=== PATIENT | female | born 1985 | race Caucasian/White ===

== ENCOUNTER 2025-06-12 14:55 | Inpatient (IN) ==
[2025-06-12] MEDS: ZOFRAN SDV IVP ONE (15:51)
[2025-06-12] MEDS: TORADOL IVP ONE (15:51)
[2025-06-12] MEDS: MORPHINE 4 MG/ML SYRINGE IVP ONE (15:51)
[2025-06-12 15:53] LABS: IMMATURE GRANULOCYTE # (AUTO) 0.1 (0.0-1.0); IMMATURE GRANULOCYTE % (AUTO) 0.6 % (0.0-5.0); RDW COEFFICIENT OF VARIATION 14.3 % (11.6-14.8)
[2025-06-12] MEDS: SODIUM CHLORIDE 1,000 ML IV ONE ×3 (15:59→21:04)
[2025-06-12 16:06] LABS: CREATININE 0.53 mg/dL (0.60-1.30)
[2025-06-12] MEDS: DILAUDID 1 MG/ML SYRINGE IVP ONE (16:43)
--- NOTE | 2025-06-12 17:12 | CT ---
EXAM: CT ABDOMEN AND PELVIS HISTORY: Right lower quadrant pain TECHNIQUE: CT abdomen and pelvis without intravenous contrast. Images were reconstructed using 3 mm section thickness. Reformations were prepared. COMPARISON: None FINDINGS: Diagnostic limitations exist without including intravenous contrast enhanced images. Elongated right hepatic lobe. Gallbladder is normal. No biliary dilatation or pancreatic pathology. Spleen and adrenal glands are normal. Left kidney and ureter are normal. There is mild right perinephric fat stranding and minimal hydronephrosis. The right ureter is mildly dilated and there is subtle right periureteral inflammatory stranding and urothelial thickening. No renal or ureteral calculus is identified. Urinary bladder is normal with no luminal calculus or wall thickening. Normal abdominal aorta. Normal stomach and appendix. General bowel gas pattern and appearance are within normal limits. No uterus is seen. There is no ascites or free air. No abdominal wall hernia. The bones are unremarkable. Lung bases are clear. - - - - - IMPRESSION: 1. There is mild right perinephric fat stranding and minimal hydronephrosis. The right ureter is mildly dilated and there is subtle right periureteral inflammatory stranding and urothelial thickening. No renal or ureteral calculus is identified. Urinary bladder is normal with no luminal calculus or wall thickening. Differential considerations include recent passage of a calculus and right renal collecting system infection/pyelonephritis. Correlate clinically. Left kidney is normal. 2. Normal appendix. Normal bowel gas pattern. No ascites or free air. - - - - - All CT scans are performed using dose optimization techniques as appropriate to the performed exam and include at least one of the following: Automated exposure control, adjustment of the mA and/or kV according to size, and the use of iterative reconstruction technique.
[2025-06-12] MEDS: BENADRYL PO STA (17:55)
[2025-06-12] MEDS: ROCEPHIN 1 GM VIAL IVP ONE (17:57)
[2025-06-12] MEDS ORDERED: BENADRYL IVP STA (18:03)
[2025-06-12] MEDS ORDERED: BENADRYL PO STA (18:13)
[2025-06-12] MEDS ORDERED: ZOFRAN SDV IVP PRN (18:15)
[2025-06-12] MEDS: ROCEPHIN 1 GM VIAL ONE (18:15)
--- NOTE | 2025-06-12 18:44 | ED.PDOC ---
General HPI ED Provider: Dr. ANNE MEJIA MD Chief Complaint: Back Pain Stated Complaint: Patient is a 40-year-old female is presenting for evaluation of acute abdominal pain. Patient stated that starting yesterday evening she has had a right sided flank pain that is sharp and severe. She is not taking medication for treatment of the pain. She states that is worsened significantly when she moves. She has had several episodes of emesis and has not been able to keep any fluids or food down. She denies any fever though. States that she has had kidney stones in the past and that this does feel similar to it. She denies any dysuria, hematuria, increased urinary frequency, vaginal discharge, or vaginal bleeding. Notes that she had a normal bowel movement earlier today. Denies any lower extremity weakness or paresthesias. Time Seen by Provider: 06/12/25 15:28 Mode of Arrival: Walk-In Information Source: Patient Exam Limitations: No limitations Nursing and Triage Documentation Reviewed and Agree: Yes Opioid Naive vs. Tolerant Does Patient Take Opioids?: No Is Patient Opioid Naive?: Yes What is Opioid Naive?: *Opioid Naive implies the patient is not already taking opioids or not chronically receiving opioids on a daily basis. *PRN dosing is not "usually" associated with tolerance. *Patients are at higher risk of over-sedation and aspiration. What is Opioid Tolerant?: *Opioid Tolerance implies less than the expected response to an opioid. *Acquired tolerance is defined by the patient taking 60mg of oral morphine daily (or equianalgesic dose of another opioid) for 1 week or more. *Often associated with chronic pain. *May take more than usual dose to achieve desired pain control. Review of Systems Review Of Systems Constitutional: Reports Chills; Denies Loss of appetite Respiratory: Reports No symptoms Cardiac: Reports No symptoms GI: Reports Abdominal pain, Nausea and Vomiting; Denies Constipated or Diarrhea : Reports Flank pain; Denies Burning, Dysuria, Frequency, Hematuria or Urgency Musculoskeletal: Reports Back pain Skin: Denies Rash Neurological: Reports No symptoms PFSH Female Reproductive History Menstrual Hx Hysterectomy: Yes Hx Tubal Ligation: Yes Physical Exam Physical Exam Appearance: Reports Ill-appearing (Patient is lying on her side in a position secondary to pain.) Ill-appearing: Mild Pain Distress: Severe Eyes: Reports Conjunctiva clear Neck: Supple Respiratory: Reports Airway patent and Breath sounds clear Cardiovascular: Reports RRR and Pulses normal GI/: Reports Soft and Tender (Right upper and right lower quadrant abdominal tenderness to palpation but there is no guarding or rigidity present. Remainder of abdomen is nontender.) Musculoskeletal: Reports Other (Negative for CVA tenderness bilaterally.) Skin: Reports Warm, Dry and Normal color; Denies Pale or Diaphoretic Neurological: Reports Sensation intact and Motor intact Interpretation Radiology Interpretation Radiology Interpretation By: Radiologist Radiology Results: Positive Exam Interpreted: Other (CT abdomen/pelvis without contrast) Xray Comments: Right pyelonephritis Re-Evaluation Re-Evaluation Time of Re-Evaluation: 17:30 Status: Unchanged Vital Signs Stable: Yes Physician Progress Note Physician Progress Note: Patient is a 40-year-old female that is presenting to the Emergency Department for evaluation of acute right sided lumbar back pain as well as right lower quadrant abdominal pain. Differential diagnosis at this time is nephrolithiasis versus pyelonephritis versus appendicitis Patient's initial presentation was highly suggestive of renal colic as she described the pain as colicky in nature and consistent with her prior nephrolithiasis. Although she denied any CVA tenderness pyelonephritis was certainly also on the differential. Her pain later began to radiate to her right lower quadrant and appendicitis became a concern at that point. We therefore obtained a CT abdomen/pelvis without contrast given the patient's severe contrast allergy. This was interpreted by the radiologist as showing findings consistent with acute right-sided pyelonephritis and mild hydronephrosis consistent with a renal stone that is likely passed. CBC did show a leukocytosis of 17,000 with a left shift and neutrophil predominance. I therefore added a CRP with results of the study still pending at this time. This raise my concern that the patient likely has an underlying infection and we therefore obtained blood cultures x [address] imaging showed signs that she has pyelonephritis. Lactic acid was also elevated at 3 and we will obtain a repeat after the patient receives her 30 cc/kg fluid bolus followed by a maintenance saline infusion. Once CT abdomen/pelvis showed signs of pyelonephritis, we initiated IV ceftriaxone 2 g. I favor the patient requires inpatient admission for IV antibiotics given that she is having emesis at home and will be unable to tolerate outpatient p.o. antibiotic regimen. For analgesia we began with 4 mg of morphine as well as Toradol 30 mg IV, however, this fails provide adequate analgesia and we therefore escalated to Dilaudid 1 g IV. Patient also had significant nausea and was given Zofran 4 mg IV which did provide improvement. Nausea later recurred and we gave Benadryl 25 mg p.o. Should be noted that ectopic was on the differential though of much lower clinical likelihood given her hysterectomy. We did order a urine as well as a urinalysis to screen for evidence of a UTI, however, patient declined providing a urine sample done here in the emergency department prior to admission. I discussed with the patient the findings of her CT imaging as well as laboratory work and recommended inpatient admission for IV antibiotics. Patient was amenable to this plan. Diagnosis: Acute right-sided pyelonephritis Course Course 06/12/25 15:48 06/12/25 15:48 Orders, Labs, Meds: Lab Review 06/12/25 06/12/25 15:48 17:16 WBC 17.34 H RBC 4.12 L Hgb 12.5 Hct 37.1 MCV 90.0 MCH 30.3 MCHC 33.7 RDW Coeff of Danny 14.3 Plt Count 368 Immature Gran % (Auto) 0.6 Neut % (Auto) 86.9 H Lymph % (Auto) 4.3 L [place] % (Auto) 7.9 Eos % (Auto) 0.1 Baso % (Auto) 0.2 Neut # (Auto) 15.1 H Lymph # (Auto) 0.7 [place] # (Auto) 1.4 Eos # (Auto) 0.0 Baso # (Auto) 0.0 Immature Gran # (Auto) 0.1 Sodium 130.1 L Potassium 5.18 H Chloride 99.6 Carbon Dioxide 22.4 Anion Gap 13.28 BUN 3.9 L Creatinine 0.53 L Estimated GFR (MDRD) 128.00 BUN/Creatinine Ratio 7.35 Glucose 169.9 H Lactic Acid 3.07 H Calcium 8.06 L Magnesium 2.28 Total Bilirubin 1.40 H AST 64.0 H ALT 30.3 Alkaline Phosphatase 112.8 Total Protein 7.82 Albumin 3.96 Globulin 3.86 Albumin/Globulin Ratio 1.02 Lipase 30.1 Orders Category Date Time Status PLACE PATIENT OBSERVATION .TO [facility] (MONITORED BED ADMISSION 06/12/25 18:14 Active ) ACTIVITY .Early Mobilization for VTE Prevention CARE 06/12/25 18:15 Active INTAKE & OUTPUT Q8HR CARE 06/12/25 18:14 Active IP: INSERT SALINE LOCK ONCE CARE 06/12/25 18:04 Active TELEMETRY MONITORING TELE CARE 06/12/25 18:14 Active VITAL SIGNS Q4H CARE 06/12/25 18:04 Active REGULAR DIET DIETARY 06/13/25 Breakfast Ordered BLOOD CULTURE (ED ONLY) Stat LAB 06/12/25 17:41 Received CBC W/ AUTO DIFF DAILY@0600 LAB 06/13/25 06:00 Ordered CBC W/ AUTO DIFF DAILY@0600 LAB 06/14/25 06:00 Ordered CBC W/ AUTO DIFF Stat LAB 06/12/25 15:48 Completed CMP [COMPREHENSIVE METABOLIC PANEL] Stat LAB 06/12/25 15:48 Completed COMPREHENSIVE METABOLIC PANEL DAILY@0600 LAB 06/13/25 06:00 Ordered COMPREHENSIVE METABOLIC PANEL DAILY@0600 LAB 06/14/25 06:00 Ordered CRP [C-REACTIVE PROTEIN] Stat LAB 06/12/25 17:16 Received LACTIC ACID Stat LAB 06/12/25 17:16 Completed LACTIC ACID Stat LAB 06/12/25 18:03 Stop Req LACTIC ACID Stat LAB 06/12/25 19:00 Ordered LIPASE Stat LAB 06/12/25 15:48 Completed MAGNESIUM Stat LAB 06/12/25 17:16 Completed TEST URINE [URINE ] Stat LAB 06/12/25 15:24 Uncollected URINALYSIS C & S IF INDICATED Stat LAB 06/12/25 15:24 Uncollected Ceftriaxone 1 gm Vial [Rocephin 1 gm Vial] Meds 06/12/25 17:56 Discontinued 1 gm .ROUTE .STK-MED ONE Ceftriaxone 1 gm Vial [Rocephin 1 gm Vial] Meds 06/12/25 17:43 Discontinued 2 gm IVP ONCE ONE Ceftriaxone/D5w 1 gm Premix [Rocephin 1 gm/50 ml D5w] Meds 06/13/25 09:00 Active 1 gm in 50 ml IV DAILY Diphenhydramine HCl [Benadryl] Meds 06/12/25 17:51 Discontinued 25 mg PO ONCE STA Hydromorphone HCl [Dilaudid 1 mg/ml Syringe] Meds 06/12/25 16:37 Discontinued 1 mg IVP ONCE ONE Ketorolac Tromethamine [Toradol] Meds 06/12/25 18:15 Active 15 mg IVP Q6HR PRN Ketorolac Tromethamine [Toradol] Meds 06/12/25 15:24 Discontinued 30 mg IVP ONCE ONE Morphine Sulfate [Morphine 2 mg/ml Syringe] Meds 06/12/25 18:15 Active 2 mg IVP Q6H PRN Morphine Sulfate [Morphine 4 mg/ml Syringe] Meds 06/12/25 15:24 Discontinued 4 mg IVP ONCE ONE Ondansetron HCl/Pf [Zofran Sdv] Meds 06/12/25 15:24 Discontinued 4 mg IVP ONCE ONE Ondansetron HCl/Pf [Zofran Sdv] Meds 06/12/25 18:15 Active 4 mg IVP Q6H PRN Sodium Chloride 0.9% [Sodium Chloride] 1,000 ml Meds 06/12/25 17:43 Active IV 125 mls/hr Sodium Chloride 0.9% [Sodium Chloride] 1,000 ml Meds 06/12/25 18:30 Active IV 125 mls/hr Sodium Chloride 0.9% [Sodium Chloride] 1,000 ml Meds 06/12/25 15:24 Discontinued IV BOLUS Sodium Chloride 0.9% [Sodium Chloride] 1,000 ml Meds 06/12/25 18:03 Active IV BOLUS RESUSCITATION STATUS Routine OTHERS 06/12/25 18:[address] ABDOMEN/PELVIS WO CONTRAST Stat RADS 06/12/25 16:39 Completed Medications Generic Name Dose Route Start Last Admin Trade Name Freq PRN Reason Stop Dose Admin Sodium Chloride 1,000 mls @ 125 mls/hr 06/12/25 17:43 06/12/25 17:54 Sodium Chloride IV 06/13/25 01:42 125 mls/hr .Q8H ONE Administration Sodium Chloride 1,000 mls @ 1,000 mls/hr 06/12/25 18:03 Sodium Chloride IV 06/12/25 19:02 BOLUS ONE CEFTRIAXONE/D5W 1 GM PREMIX 1 gm in 50 mls @ 100 mls/hr 06/13/25 09:00 Rocephin 1 Gm/50 Ml D5w IV 06/16/25 08:59 DAILY ROVERTO Sodium Chloride 1,000 mls @ 125 mls/hr 06/12/25 18:30 Sodium Chloride IV .Q8H ROVERTO Ketorolac Tromethamine 15 mg 06/12/25 18:15 Ketorolac Tromethamine 15 Mg/Ml Vial IVP 06/16/25 18:16 Q6HR PRN Pain Morphine Sulfate 2 mg 06/12/25 18:15 Morphine Sulfate 2 Mg/Ml Syringe IVP Q6H PRN MODERATE PAIN Ondansetron HCl 4 mg 06/12/25 18:15 Ondansetron Hcl/Pf 4 Mg/2 Ml Sdv IVP Q6H PRN Nausea / Vomiting Discontinued Medications Generic Name Dose Route Start Last Admin Trade Name Freq PRN Reason Stop Dose Admin Ceftriaxone Sodium 2 gm 06/12/25 17:43 06/12/25 17:57 Ceftriaxone 1 Gm Vial IVP 06/12/25 17:44 2 gm ONCE ONE Administration Diphenhydramine HCl 25 mg 06/12/25 17:51 06/12/25 17:55 Diphenhydramine Hcl 25 Mg Capsule PO 06/12/25 17:52 25 mg ONCE STA Administration Hydromorphone HCl 1 mg 06/12/25 16:37 06/12/25 16:43 Hydromorphone Hcl 1 Mg/Ml Syringe IVP 06/12/25 16:38 1 mg ONCE ONE Administration Sodium Chloride 1,000 mls @ 1,000 mls/hr 06/12/25 15:24 06/12/25 17:42 Sodium Chloride IV 06/12/25 16:23 Infused BOLUS ONE Infusion Ketorolac Tromethamine 30 mg 06/12/25 15:24 06/12/25 15:51 Ketorolac Tromethamine 30 Mg/Ml Vial IVP 06/12/25 15:25 30 mg ONCE ONE Administration Morphine Sulfate 4 mg 06/12/25 15:24 06/12/25 15:51 Morphine Sulfate 4 Mg/Ml Syringe IVP 06/12/25 15:25 4 mg ONCE ONE Administration Ondansetron HCl 4 mg 06/12/25 15:24 06/12/25 15:51 Ondansetron Hcl/Pf 4 Mg/2 Ml Sdv IVP 06/12/25 15:25 4 mg ONCE ONE Administration Vital Signs: Temp Pulse Resp BP Pulse Ox 06/12/25 16:33 73 195/90 H 98 06/12/25 14:58 98.3 F 107 H 22 H 117/76 98 Discharge Plan Discharge Patient Disposition: ADMITTED INPATIENT Discharge Problem: Acute pyelonephritis Did you review [place] [employer] for ALL controlled substances?: Not Applicable ED Provider: ANNE MEJIA
[2025-06-12] MEDS: MORPHINE 2 MG/ML SYRINGE IVP PRN (20:18)
[2025-06-12] MEDS: SODIUM CHLORIDE 1,000 ML IV SCH (20:30)
[2025-06-12 20:39] LABS: GLUCOSE, URINE (UA) Trace (NEGATIVE); LEUKOCYTE ESTERASE ,URINE 2+ (NEGATIVE); URINE, BLOOD Trace-intact (NEGATIVE)
[2025-06-12 20:42] LABS: SQUAMOUS EPITHELIAL CELL,UR 0-2 (0-5); URINE PREGNANCY TEST NEGATIVE (NEGATIVE); URINE WBC, MICROSCOPIC 20-30 (0-2)
[2025-06-12] MEDS: TORADOL IVP PRN (20:57)
[2025-06-12 23:02] VITALS: BMI 25.0
[2025-06-13 05:22] LABS: IMMATURE GRANULOCYTE # (AUTO) 0.1 (0.0-1.0); IMMATURE GRANULOCYTE % (AUTO) 0.8 % (0.0-5.0); RDW COEFFICIENT OF VARIATION 13.8 % (11.6-14.8)
[2025-06-13 05:45] LABS: CREATININE 0.69 mg/dL (0.60-1.30)
[2025-06-13] MEDS: ROCEPHIN 1 GM/50 ML D5W 1 GM/50 ML BAG IV SCH (08:27)
[2025-06-13] MEDS: DILAUDID 1 MG/ML SYRINGE IVP PRN (10:00)
[2025-06-13] MEDS: DILAUDID 1 MG/ML SYRINGE IVP ONE (10:51)
[2025-06-13] MEDS: SOLU-MEDROL 40 MG IVP ONE (11:07)
[2025-06-13] MEDS: BENADRYL IVP STA (11:08)
--- NOTE | 2025-06-13 11:33 | PCM ---
Date of Service Date Seen by Provider: 06/13/25 Time Seen by Provider: 08:30 Admit Day/Time Admission Date: 06/12/25 Admission Time: 18:14 Reason for Admission Chief Complaint: ACUTE PYELONEPHUTIS Hospital Provider Hospital Provider: PANFILO ABDUL PA-C, [facility] History of Present Illness History of Present Illness: Patient is a 40 year old female with history of kidney stones in the past who presented to ER with right flank pain radiating into her abdomen since 06/10. She's felt feverish on and off. She's had some nausea. States she had some diarrhea yesterday. In the ER she was found to have a UTI, elevated wbc count of 17 and lactic of 3 which normalized with fluids. CT a/p showing right sided pyelo with suspicion of recently passed stone. Pt is unaware of passing a stone as of late. She was given IV antiemetics and pain medications. Admitted to [facility]. Patient's labs have improved overnight. Vitals stable. However this morning patient is in significant pain, untouched by IV pain medications including dilaudid. She is in distress, lying on her left side in position, guarding her right abdomen, and is sob while speaking in pain. States she has a contrast allergy including breaking out in a rash about 10 years ago when it was administered. Denies sob, n/v/d, or anaphylactic type reaction. We discussed repeating her CT scan with contrast due to her pain out of proportion for pyelo, she is agreeable to the risks of adverse reaction and repeat radiation. Will give solumedrol and benadryl prior to scan. Urine preg was negative yesterday. Case Discussed With Case Discussed With: Patient's case was discussed with the ER Physicians, Dr. Lindquist. [facility] Medical History Arm fracture, right S42.301A - Unspecified fracture of shaft of humerus, right arm, initial encounter for closed fracture (ICD-10) Surgical History Hx of tonsillectomy Z90.89 - Acquired absence of other organs (ICD-10) H/O: hysterectomy Z90.710 - Acquired absence of both cervix and uterus (ICD-10) Social History Smoking and tobacco status: Current every day smoker Tobacco: How many years used: 1 (restarted smoking 1/2 pk per day after quiting for 20 years) Quit status: has quit before Alcohol intake: current Alcohol intake frequency: holidays/special occasions only Substance use type: marijuana Counseling given: No (medical marijuana) Allergies Allergies Allergy/AdvReac Type Severity Reaction Status Date / Time iodine AdvReac Verified 06/12/25 21:09 sulfamethoxazole (From AdvReac Verified 06/12/25 21:09 Bactrim) trimethoprim (From Bactrim) AdvReac Verified 06/12/25 21:09 vancomycin AdvReac Verified 06/12/25 21:09 Current Medications Home Medications Famotidine (Famotidine Inj 20 Mg/2 Ml Vial) 20 mg IVP Q12HR ROVERTO Last Admin: 06/13/25 12:26 Dose: 20 mg Fentanyl Citrate (Fentanyl 50 Mcg/Ml Sdv) 50 mcg IVP Q6HR PRN PRN Reason: severe pain Last Admin: 06/13/25 13:19 Dose: 50 mcg Hydromorphone HCl (Hydromorphone Hcl 1 Mg/Ml Syringe) 0.5 mg IVP Q4HR PRN On Hold: 06/13/25 13:02 PRN Reason: MODERATE PAIN Last Admin: 06/13/25 10:00 Dose: 0.5 mg CEFTRIAXONE/D5W 1 GM PREMIX (Rocephin 1 Gm/50 Ml D5w) 1 gm in 50 mls @ 100 mls/hr IV DAILY ROVERTO Stop: 06/16/25 08:59 Last Admin: 06/13/25 08:27 Dose: 100 mls/hr Sodium Chloride (Sodium Chloride) 1,000 mls @ 125 mls/hr IV .Q8H ROVERTO Last Admin: 06/13/25 13:21 Dose: 125 mls/hr Ketorolac Tromethamine (Ketorolac Tromethamine 15 Mg/Ml Vial) 15 mg IVP Q6HR PRN PRN Reason: Pain Stop: 06/16/25 18:16 Last Admin: 06/13/25 04:52 Dose: 15 mg Morphine Sulfate (Morphine Sulfate 2 Mg/Ml Syringe) 2 mg IVP Q6H PRN On Hold: 06/13/25 09:43 PRN Reason: MODERATE PAIN Last Admin: 06/13/25 08:23 Dose: 2 mg Ondansetron HCl (Ondansetron Hcl/Pf 4 Mg/2 Ml Sdv) 4 mg IVP Q6H PRN PRN Reason: Nausea / Vomiting 1 [No Reported Medications] 06/12/25 [History Confirmed 06/12/25] Opioid Naive vs. Tolerant Does Patient Take Opioids?: No Is Patient Opioid Naive?: Yes What is Opioid Naive?: *Opioid Naive implies the patient is not already taking opioids or not chronically receiving opioids on a daily basis. *PRN dosing is not "usually" associated with tolerance. *Patients are at higher risk of over-sedation and aspiration. Is Patient Opioid Tolerant?: No What is Opioid Tolerant?: *Opioid Tolerance implies less than the expected response to an opioid. *Acquired tolerance is defined by the patient taking 60mg of oral morphine daily (or equianalgesic dose of another opioid) for 1 week or more. *Often associated with chronic pain. *May take more than usual dose to achieve desired pain control. Review of Systems Constitutional: Reports Fever, Fatigue and Loss of appetite Head: Reports Normocephalic and Atraumatic Cardiovascular: Denies Chest pain or Edema Respiratory: Reports Shortness of air; Denies Cough Gastrointestinal: Reports Nausea (yesterday), Diarrhea (yesterday) and Abdominal pain; Denies Constipation Genitourinary: Denies Dysuria or Frequency Physical examination Most Recent Vital Signs: Most Recent Vital Signs Temperature 98.5 F 06/13/25 09:54 Temperature Source Temporal Artery Scan 06/13/25 09:54 Temperature Source Oral 06/12/25 14:58 Pulse Rate 81 06/13/25 09:54 Respiratory Rate 18 06/13/25 09:54 Blood Pressure 101/64 06/13/25 09:54 Blood Pressure Mean 76 06/13/25 09:54 Blood Pressure Right Arm 121/89 06/12/25 20:14 Blood Pressure Location Right Arm 06/13/25 09:54 Blood Pressure Position Supine 06/13/25 09:54 O2 Sat by Pulse Oximetry 99 06/13/25 09:54 Oxygen Delivery Method Room Air 06/13/25 11:00 Height 5 ft 7 in 06/12/25 20:14 Weight 72.3 kg 06/12/25 20:14 Telemetry Type Remote Telemetry 06/13/25 07:00 Telemetry Monitoring Continues 06/13/25 07:00 Telemetry Heart Rate 82 06/13/25 07:00 EKG MO Interval 0.14 06/13/25 07:00 EKG QRS Interval 0.08 06/13/25 07:00 Telemetry Strip Reading sr 06/13/25 07:00 Appearance: Positive Alert and Oriented x3 and Other (in moderate distress due to pain, lying in position on left side ) Skin: Positive [place], Warm and Good Turgor HEENT: Positive Normocephalic and Atraumatic Neck: Positive Supple and Midline Trachea Chest/Lungs: Positive Clear to Auscultation Bilaterally and Other (has conversation dyspnea due to pain ); Negative Rales, Rhonci or Wheezes Heart: Positive RRR GI/: Positive Soft and Tender (right flank/anterior abdomen, feels soft but unable to fully asses due to patient's pain and position); Negative Nontender Extremities: Negative Edema Neurological: Positive Cranial Nerves Intact, Alert, Oriented and Muscle Strength 5/5 in Upper and Lower Extremities Bilaterally Psychiatric: Positive Oriented x4, Appropriate Mood and Appropriate Affect Labs This Visit Labs This Visit: Labs This Visit 06/12/25 06/12/25 06/12/25 15:48 17:16 20:08 WBC 17.34 H RBC 4.12 L Hgb 12.5 Hct 37.1 MCV 90.0 MCH 30.3 MCHC 33.7 RDW Coeff of Danny 14.3 Plt Count 368 Immature Gran % (Auto) 0.6 Neut % (Auto) 86.9 H Lymph % (Auto) 4.3 L [place] % (Auto) 7.9 Eos % (Auto) 0.1 Baso % (Auto) 0.2 Neut # (Auto) 15.1 H Lymph # (Auto) 0.7 [place] # (Auto) 1.4 Eos # (Auto) 0.0 Baso # (Auto) 0.0 Immature Gran # (Auto) 0.1 Sodium 130.1 L Potassium 5.18 H Chloride 99.6 Carbon Dioxide 22.4 Anion Gap 13.28 BUN 3.9 L Creatinine 0.53 L Estimated GFR (MDRD) 128.00 BUN/Creatinine Ratio 7.35 Glucose 169.9 H Lactic Acid 3.07 H 0.67 L D Calcium 8.06 L Magnesium 2.28 Total Bilirubin 1.40 H AST 64.0 H ALT 30.3 Alkaline Phosphatase 112.8 Total Protein 7.82 Albumin 3.96 Globulin 3.86 Albumin/Globulin Ratio 1.02 Lipase 30.1 Urine Color Urine Clarity Urine pH Ur Specific [place] Urine Protein Urine Glucose (UA) Urine Ketones Urine Blood Urine Nitrite Urine Bilirubin Urine Urobilinogen Ur Leukocyte Esterase Urine Microscopic RBC Urine Microscopic WBC Ur Squamous Epith Cells Urine Bacteria Urine Test 06/12/25 06/13/25 20:20 05:08 WBC 13.97 H RBC 3.79 L Hgb 11.3 L Hct 35.1 L MCV 92.6 MCH 29.8 MCHC 32.2 RDW Coeff of Danny 13.8 Plt Count 293 Immature Gran % (Auto) 0.8 Neut % (Auto) 75.3 H Lymph % (Auto) 9.9 L [place] % (Auto) 13.5 H Eos % (Auto) 0.3 Baso % (Auto) 0.2 Neut # (Auto) 10.5 H Lymph # (Auto) 1.4 [place] # (Auto) 1.9 Eos # (Auto) 0.0 Baso # (Auto) 0.0 Immature Gran # (Auto) 0.1 Sodium 134.6 Potassium 3.51 Chloride 105.2 Carbon Dioxide 27.7 Anion Gap 5.21 BUN 4.0 L Creatinine 0.69 Estimated GFR (MDRD) 95.00 BUN/Creatinine Ratio 5.79 Glucose 108.8 H D Lactic Acid Calcium 7.34 L Magnesium Total Bilirubin 0.36 AST 18.3 D ALT 20.9 Alkaline Phosphatase 120.7 Total Protein 5.69 L Albumin 2.86 L Globulin 2.83 Albumin/Globulin Ratio 1.01 Lipase Urine Color [place] Urine Clarity Slightly Urine pH 6.0 Ur Specific [place] <=1.005 Urine Protein 1+ H Urine Glucose (UA) Trace H Urine Ketones Negative Urine Blood Trace-intact H Urine Nitrite Positive H Urine Bilirubin Negative Urine Urobilinogen 0.2 Ur Leukocyte Esterase 2+ H Urine Microscopic RBC 5-10 Urine Microscopic WBC 20-30 Ur Squamous Epith Cells 0-2 Urine Bacteria 2+ Urine Test Negative Microbiology This Visit 06/12/25 20:20 Urine,Random Urine Culture - Preliminary Imaging Imaging: EXAM: CT ABDOMEN AND PELVIS HISTORY: Right lower quadrant pain TECHNIQUE: CT abdomen and pelvis without intravenous contrast. Images were reconstructed using 3 mm section thickness. Reformations were prepared. COMPARISON: None FINDINGS: Diagnostic limitations exist without including intravenous contrast enhanced images. Elongated right hepatic lobe. Gallbladder is normal. No biliary dilatation or pancreatic pathology. Spleen and adrenal glands are normal. Left kidney and ureter are normal. There is mild right perinephric fat stranding and minimal hydronephrosis. The right ureter is mildly dilated and there is subtle right periureteral inflammatory stranding and urothelial thickening. No renal or ureteral calculus is identified. Urinary bladder is normal with no luminal calculus or wall thickening. Normal abdominal aorta. Normal stomach and appendix. General bowel gas pattern and appearance are within normal limits. No uterus is seen. There is no ascites or free air. No abdominal wall hernia. The bones are unremarkable. Lung bases are clear. - - - - -IMPRESSION: 1. There is mild right perinephric fat stranding and minimal hydronephrosis. The right ureter is mildly dilated and there is subtle right periureteral inflammatory stranding and urothelial thickening. No renal or ureteral calculus is identified. Urinary bladder is normal with no luminal calculus or wall thickening. Differential considerations include recent passage of a calculus and right renal collecting system infection/pyelonephritis. Correlate clinically. Left kidney is normal. 2. Normal appendix. Normal bowel gas pattern. No ascites or free air. Review Statement Review Statement: I have independently reviewed and interpreted the labs/EKGs/imaging that were ordered by the ER provider. I have reviewed all outside records that are available currently in our EMR including imaging/notes/labs from previous visits. Plan Plan: 1. Acute pyelonephritis - questionable passage of recent stone but not visualized currently - cont rocephin, urine culture pending showing GNR, pain control, anti emetics, fluids 2. Intractable pain - out of proportion given labs/ct findings, she feels her abd is distended as well, will repeat scan with contrast to ensure no other etiology. Pt had mild reaction of a rash 10 yrs ago to contrast, will give solumedrol and benadryl prior to scan. She is agreeable to risk of reaction and risk of radiation. 3. Sepsis in setting of pyelo - WBC count and lactic elevated upon arrival to ED. Improved today. BC pending. Cont abx. DVT Prophylaxis: Ambulation Time Spent: Greater than 80 minutes spent with patient, 50% of the time spent with this patient was devoted to counseling and coordination of care. [facility] minutes spent discussing advance care planning. Admit to: Make inpatient today, still requiring IV pain medications, blood cultures pending, requiring further work up Discussed Plan of Care with Dr. Pedrito Bedolla. Medications Medication Orders: Medications Ordered Category Date Time Status Ceftriaxone/D5w 1 gm Premix [Rocephin 1 gm/50 ml D5w] Meds 06/13/25 09:00 Active 1 gm in 50 ml IV DAILY Hydromorphone HCl [Dilaudid 1 mg/ml Syringe] Meds 06/13/25 09:43 Active 0.5 mg IVP Q4HR PRN Ketorolac Tromethamine [Toradol] Meds 06/12/25 18:15 Active 15 mg IVP Q6HR PRN Morphine Sulfate [Morphine 2 mg/ml Syringe] Meds 06/12/25 18:15 Hold 2 mg IVP Q6H PRN Ondansetron HCl/Pf [Zofran Sdv] Meds 06/12/25 18:15 Active 4 mg IVP Q6H PRN Sodium Chloride 0.9% [Sodium Chloride] 1,000 ml Meds 06/12/25 18:30 Active IV 125 mls/hr
[2025-06-13] MEDS: OMNIPAQUE 350 MG/ML 100ML IVP ONE (12:12)
[2025-06-13] MEDS: PEPCID IVP SCH (12:26)
--- NOTE | 2025-06-13 13:02 | CT ---
EXAM: CT ABDOMEN AND PELVIS WITH CONTRAST HISTORY: Severe right-sided pain out of proportion to exam. Hospital right-sided pyelonephritis. TECHNIQUE: CT acquisition of the abdomen and pelvis from the lower thorax through the pelvis following IV contrast administration. 2-D coronal and sagittal reformatted images were obtained from the axial source images. IV Contrast: 98 cc omnipaque [id number] administered. Oral Contrast: None. CT Dose Reduction Techniques Performed: Yes. COMPARISON: None. FINDINGS: Lower Thorax: Within normal limits. Liver: There is mild periportal edema which is nonspecific though can be seen in setting of systemic stress or viral process. No focal hepatic abnormality. Biliary: Gallbladder and common bile duct are normal. Pancreas: No mass or evidence of pancreatitis. No duct dilation. Spleen: No mass. No splenomegaly. Adrenals: No mass. Kidneys/Ureters: Several hypodensities are seen throughout the kidney on the left the largest measures 1.4 x 1.1 cm. These are above simple fluid in nature. Fingers are seen within the bilateral kidneys. The largest area on vein right measures 2.2 x 1.3 cm. This is in the upper kidney with more striated appearance of the right kidney. Findings bilaterally could represent pyelonephritis. There is mild perinephric edema greater on the right. A well-defined fluid collection or abscess at this time is not definitively seen. There is mild wall thickening to the renal pelvis and ureters. This is greater on the right than the left. No obstructive uropathy. Findings are on the basis likely of pyelonephritis bilaterally and ureteritis bilaterally but greater on the right. GI Tract: Colon throughout does not demonstrate significant acute process. Diverticulosis without diverticulitis. Terminal ileum is normal. Appendix is normal. Small bowel is normal. Stomach is contracted but appears normal. Duodenum is normal. Peritoneal Cavity: No other fluid collection or mass. Retroperitoneum: No fluid collection. Lymph Nodes: No lymphadenopathy. Vasculature: No aortic atherosclerotic calcifications. No aortic or iliac aneurysm. Celiac, superior mesenteric, and inferior mesenteric arteries are grossly patent. Limited assessment of the portal and hepatic veins and IVC is unremarkable within limitations of the phase of IV contrast. Pelvis: There is a cyst within being adnexa on the left 2 cm. No other adnexal abnormality. Hysterectomy. Circumferential prominence of the bladder wall likely under distention without focal abnormal findings. Bones/Soft Tissues: Soft tissues do not demonstrate significant abnormal finding. Bony structures do not demonstrate significant acute abnormal finding. IMPRESSION: 1. There are multiple areas of abnormal hypodensity within the bilateral kidneys. Some of these are somewhat rounded while others are bandlike. Findings are consistent with bilateral pyelonephritis but worse on the left than the right. Hyperdense cysts are felt less likely. No internal air or wall to suggest definite abscess at this time. There is thickening of the bilateral ureters greater on the right likely on the basis of ureteritis and perinephric edema. No suspicious lesion or obstructive uropathy is definitively seen. We would recommend short-term follow up after appropriate clinical therapy and monitoring urinalysis to ensure that these resolve. Closer follow up may be obtained depending on patient's clinical presentation.. Circumferential prominence of the bladder wall may be due to underdistention or mild cystitis is not excluded. 2. There is mild periportal edema which may be due to the findings above. Liver is otherwise normal. 3. Upper abdominal organs otherwise are normal. 4. Bowel throughout does not demonstrate significant acute finding. 5. Hysterectomy. There is a benign-appearing cyst left adnexa measuring 2 cm. No other pelvic abnormality. Details and other findings, as above. Findings are discussed with Lenore PUCKETT at 06/13/2025 at 12:51 p.m., with verification. All CT scans are performed using dose optimization techniques as appropriate to the performed exam and include at least one of the following: Automated exposure control, adjustment of the mA and/or kV according to size, and the use of iterative reconstruction technique.
[2025-06-13] MEDS: SUBLIMAZE IVP PRN ×2 (13:19→21:22)
[2025-06-14 05:22] LABS: IMMATURE GRANULOCYTE # (AUTO) 0.1 (0.0-1.0); IMMATURE GRANULOCYTE % (AUTO) 0.7 % (0.0-5.0); RDW COEFFICIENT OF VARIATION 13.9 % (11.6-14.8)
[2025-06-14 05:38] LABS: CREATININE 0.51 mg/dL (0.60-1.30)
[2025-06-14] MEDS: INVANZ 1 GM in SODIUM CHLORIDE 50 ML IV SCH (08:07)
--- NOTE | 2025-06-14 10:41 | PCM.PROG ---
Date/Time Seen Date Seen by Provider: 06/14/25 Time Seen by Provider: 09:00 Provider Provider[facility]UL [facility] Chief Complaint Chief Complaint: ACUTE PYELONEPHUTIS Subjective Subjective: Patient is sitting up in bed today. Still having right sided abdominal pain. Clinically appears improved. States she felt great yesterday evening but worsened again this morning. Has been tolerating PO. Objective Appearance: Positive No Apparent Distress and Alert and Oriented x3 Chest/Lungs: Positive Clear to Auscultation Bilaterally; Negative Rales, Rhonci or Wheezes Heart: Positive RRR GI/: Positive Soft, Bowel Sounds Normal, No Distention and Tender (right flank and right anterior abd, no guarding today ) Neurological: Positive Cranial Nerves Intact, Alert, Oriented and Muscle Strength 5/5 in Upper and Lower Extremities Bilaterally Vital Signs Vital Signs: Vital Signs: Last 24 Hours 06/13/25 11:00 06/13/25 13:00 06/13/25 13:42 Temperature 97.7 F Temperature Source Temporal Artery Scan Pulse Rate 99 Respiratory Rate 18 Blood Pressure 100/68 Blood Pressure Mean 78 Blood Pressure Location Left Arm Blood Pressure Position Supine O2 Sat by Pulse Oximetry 96 Oxygen Delivery Method Room Air Room Air Telemetry Type Remote Telemetry Telemetry Monitoring Continues Telemetry Heart Rate 91 Telemetry SPO2 EKG OK Interval 0.14 EKG QRS Interval 0.08 Telemetry Strip Reading sr 06/13/25 17:50 06/13/25 19:00 06/13/25 19:12 Temperature 97.7 F Temperature Source Temporal Artery Scan Pulse Rate 82 Respiratory Rate 16 Blood Pressure 104/69 Blood Pressure Mean 80 Blood Pressure Location Right Arm Blood Pressure Position Supine O2 Sat by Pulse Oximetry 96 Oxygen Delivery Method Room Air Room Air Telemetry Type Remote Telemetry Telemetry Monitoring Continues Telemetry Heart Rate 70 Telemetry SPO2 99 EKG OK Interval 0.18 EKG QRS Interval 0.08 Telemetry Strip Reading SR 06/13/25 21:34 06/14/25 01:00 06/14/25 02:00 Temperature 98.0 F Temperature Source Temporal Artery Scan Pulse Rate 69 60 Respiratory Rate 18 16 Blood Pressure 110/75 Blood Pressure Mean 86 Blood Pressure Location Right Arm Blood Pressure Position Supine O2 Sat by Pulse Oximetry 98 Oxygen Delivery Method Room Air Room Air Telemetry Type Remote Telemetry Telemetry Monitoring Continues Telemetry Heart Rate 58 L Telemetry SPO2 EKG OK Interval 0.17 EKG QRS Interval 0.06 Telemetry Strip Reading SB 06/14/25 05:06 06/14/25 07:00 06/14/25 08:00 Temperature 97.3 F L Temperature Source Temporal Artery Scan Pulse Rate 68 Respiratory Rate 16 Blood Pressure 115/75 Blood Pressure Mean 88 Blood Pressure Location Left Arm Blood Pressure Position Supine O2 Sat by Pulse Oximetry 98 Oxygen Delivery Method Room Air Room Air Telemetry Type Remote Telemetry Telemetry Monitoring Continues Telemetry Heart Rate 52 L Telemetry SPO2 EKG OK Interval 0.14 EKG QRS Interval 0.08 Telemetry Strip Reading SB 06/14/25 09:58 Temperature 97.0 F L Temperature Source Temporal Artery Scan Pulse Rate 69 Respiratory Rate 18 Blood Pressure 105/58 L Blood Pressure Mean 73 Blood Pressure Location Right Arm Blood Pressure Position Sitting O2 Sat by Pulse Oximetry 98 Oxygen Delivery Method Room Air Telemetry Type Telemetry Monitoring Telemetry Heart Rate Telemetry SPO2 EKG OK Interval EKG QRS Interval Telemetry Strip Reading Lab Results Lab Results: Lab Results: Last 24 Hours 06/14/25 06/12/25 05:09 17:16 WBC 12.51 H RBC 3.76 L Hgb 11.1 L Hct 34.6 L MCV 92.0 MCH 29.5 MCHC 32.1 RDW Coeff of Danny 13.9 Plt Count 326 Immature Gran % (Auto) 0.7 Neut % (Auto) 81.8 H Lymph % (Auto) 10.2 [place] % (Auto) 7.1 Eos % (Auto) 0.0 Baso % (Auto) 0.2 Neut # (Auto) 10.2 H Lymph # (Auto) 1.3 [place] # (Auto) 0.9 Eos # (Auto) 0.0 Baso # (Auto) 0.0 Immature Gran # (Auto) 0.1 Sodium 138.8 Potassium 3.90 Chloride 110.3 H Carbon Dioxide 27.4 Anion Gap 5.00 BUN 2.6 L Creatinine 0.51 L Estimated GFR (MDRD) 134.00 BUN/Creatinine Ratio 5.09 Glucose 125.9 H Calcium 7.79 L Total Bilirubin 0.24 AST 21.0 ALT 19.8 Alkaline Phosphatase 124.9 C-Reactive Prot, Quant 199 H Total Protein 5.70 L Albumin 2.81 L Globulin 2.89 Albumin/Globulin Ratio 0.97 Additional Comments Additional Comments: I have independently reviewed and interpreted the labs/EKGs/imaging ordered during this hospital stay. I have reviewed outside records that are available in our EMR that pertain to medical stay including imaging/notes/labs from previous visits. EXAM: CT ABDOMEN AND PELVIS WITH CONTRAST HISTORY: Severe right-sided pain out of proportion to exam. Hospital right-sided pyelonephritis. TECHNIQUE: CT acquisition of the abdomen and pelvis from the lower thorax through the pelvis following IV contrast administration. 2-D coronal and sagittal reformatted images were obtained from the axial source images. IV Contrast: 98 cc omnipaque 350 administered. Oral Contrast: None. CT Dose Reduction Techniques Performed: Yes. COMPARISON: None. FINDINGS: Lower Thorax: Within normal limits. Liver: There is mild periportal edema which is nonspecific though can be seen in setting of systemic stress or viral process. No focal hepatic abnormality. Biliary: Gallbladder and common bile duct are normal. Pancreas: No mass or evidence of pancreatitis. No duct dilation. Spleen: No mass. No splenomegaly. Adrenals: No mass. Kidneys/Ureters: Several hypodensities are seen throughout the kidney on the left the largest measures 1.4 x 1.1 cm. These are above simple fluid in nature. Fingers are seen within the bilateral kidneys. The largest area on vein right measures 2.2 x 1.3 cm. This is in the upper kidney with more striated appearance of the right kidney. Findings bilaterally could represent pyelonephritis. There is mild perinephric edema greater on the right. A well-defined fluid collection or abscess at this time is not definitively seen. There is mild wall thickening to the renal pelvis and ureters. This is greater on the right than the left. No obstructive uropathy. Findings are on the basis likely of pyelonephritis bilaterally and ureteritis bilaterally but greater on the right. GI Tract: Colon throughout does not demonstrate significant acute process. Diverticulosis without diverticulitis. Terminal ileum is normal. Appendix is normal. Small bowel is normal. Stomach is contracted but appears normal. Duodenum is normal. Peritoneal Cavity: No other fluid collection or mass. Retroperitoneum: No fluid collection. Lymph Nodes: No lymphadenopathy. Vasculature: No aortic atherosclerotic calcifications. No aortic or iliac aneurysm. Celiac, superior mesenteric, and inferior mesenteric arteries are grossly patent. Limited assessment of the portal and hepatic veins and IVC is unremarkable within limitations of the phase of IV contrast. Pelvis: There is a cyst within being adnexa on the left 2 cm. No other adnexal abnormality. Hysterectomy. Circumferential prominence of the bladder wall likely under distention without focal abnormal findings. Bones/Soft Tissues: Soft tissues do not demonstrate significant abnormal finding. Bony structures do not demonstrate significant acute abnormal finding. IMPRESSION: 1. There are multiple areas of abnormal hypodensity within the bilateral kidneys. Some of these are somewhat rounded while others are bandlike. Findings are consistent with bilateral pyelonephritis but worse on the left than the right. Hyperdense cysts are felt less likely. No internal air or wall to suggest definite abscess at this time. There is thickening of the bilateral ureters greater on the right likely on the basis of ureteritis and perinephric edema. No suspicious lesion or obstructive uropathy is definitively seen. We would recommend short-term follow up after appropriate clinical therapy and monitoring urinalysis to ensure that these resolve. Closer follow up may be obtained depending on patient's clinical presentation.. Circumferential prominence of the bladder wall may be due to underdistention or mild cystitis is not excluded. 2. There is mild periportal edema which may be due to the findings above. Liver is otherwise normal. 3. Upper abdominal organs otherwise are normal. 4. Bowel throughout does not demonstrate significant acute finding. 5. Hysterectomy. There is a benign-appearing cyst left adnexa measuring 2 cm. No other pelvic abnormality. Details and other findings, as above. Active Medications Active Medications: Medications Generic Name Dose Route Start Last Admin Trade Name Freq PRN Reason Stop Dose Admin Famotidine 20 mg 06/13/25 12:20 06/14/25 08:08 Famotidine Inj 20 Mg/2 Ml Vial IVP 20 mg Q12HR ROVERTO Administration Fentanyl Citrate 25 mcg 06/13/25 19:30 06/14/25 05:12 Fentanyl 50 Mcg/Ml Sdv IVP 25 mcg Q6HR PRN Administration severe pain Hydromorphone HCl 0.5 mg 06/13/25 09:43 06/13/25 10:00 Hydromorphone Hcl 1 Mg/Ml Syringe IVP 0.5 mg On Hold: 06/13/25 13:02 Q4HR PRN Administration MODERATE PAIN Sodium Chloride 1,000 mls @ 125 mls/hr 06/12/25 18:30 06/14/25 05:03 Sodium Chloride IV 125 mls/hr .Q8H ROVERTO Administration Ertapenem 1 gm/ Sodium 50 mls @ 100 mls/hr 06/14/25 09:00 06/14/25 08:07 Chloride IV 06/17/25 08:59 100 mls/hr DAILY ROVERTO Administration Ketorolac Tromethamine 15 mg 06/12/25 18:15 06/14/25 08:07 Ketorolac Tromethamine 15 Mg/Ml Vial IVP 06/16/25 18:16 15 mg Q6HR PRN Administration Pain Morphine Sulfate 2 mg 06/12/25 18:15 06/13/25 08:23 Morphine Sulfate 2 Mg/Ml Syringe IVP 2 mg On Hold: 06/13/25 09:43 Q6H PRN Administration MODERATE PAIN Ondansetron HCl 4 mg 06/12/25 18:15 Ondansetron Hcl/Pf 4 Mg/2 Ml Sdv IVP Q6H PRN Nausea / Vomiting Plan Plan: 1. Acute pyelonephritis, bilateral, worse on R due to ESBL + e coli - questionable passage of recent stone but not visualized currently - Change rocephin to invanz, pain control, anti emetics, stop fluids 2. Intractable pain - Improved today, cont fentanyl and toradol prn. 3. Sepsis in setting of pyelo - Ruled out, blood cultures negative so far, infection markers improved. Cont abx. DVT Prophylaxis: Ambulation Review Statement Review Statement: I have personally discussed and reviewed the patient's visit/currently labs/imaging/decision making with Dr. Bedolla, my supervising attending. Greater that 50 minutes spent with patient, 50% of the time spent with this patient was devoted to counseling and coordination of care.
[2025-06-14 21:28] VITALS: RESP 18
[2025-06-15 05:09] VITALS: BP 122/72; PULSE 66; TEMP 97.5
[2025-06-15 05:37] LABS: IMMATURE GRANULOCYTE # (AUTO) 0.1 (0.0-1.0); IMMATURE GRANULOCYTE % (AUTO) 1.1 % (0.0-5.0); RDW COEFFICIENT OF VARIATION 14.1 % (11.6-14.8)
[2025-06-15 05:59] LABS: CREATININE 0.64 mg/dL (0.60-1.30)
--- NOTE | 2025-06-15 09:18 | DCSUM ---
Admission Date Admission Date: 06/12/25 Discharge Date Discharge Date: 06/15/25 Admission Diagnosis Admission Diagnosis: 1. Acute pyelonephritis 2. Intractable pain 3. Sepsis in setting of pyelo Discharge Diagnosis Discharge Diagnosis: 1. Acute pyelonephritis, bilateral, worse on R due to ESBL + e coli 2. Intractable pain - resolved 3. Sepsis in setting of pyelo - Ruled out Hospital Provider Hospital Provider: PANFILO ABDUL [facility] Summary of History and Physical Summary of History and Physical: Patient is a 40 year old female with history of kidney stones in the past who presented to ER with right flank pain radiating into her abdomen since 06/10. She's felt feverish on and off. She's had some nausea. States she had some diarrhea yesterday. In the ER she was found to have a UTI, elevated wbc count of 17 and lactic of 3 which normalized with fluids. CT a/p showing right sided pyelo with suspicion of recently passed stone. Pt is unaware of passing a stone as of late. She was given IV antiemetics and pain medications. Admitted to [facility]. Patient's labs have improved overnight. Vitals stable. However this morning patient is in significant pain, untouched by IV pain medications including dilaudid. She is in distress, lying on her left side in position, guarding her right abdomen, and is sob while speaking in pain. States she has a contrast allergy including breaking out in a rash about 10 years ago when it was administered. Denies sob, n/v/d, or anaphylactic type reaction. We discussed repeating her CT scan with contrast due to her pain out of proportion for pyelo, she is agreeable to the risks of adverse reaction and repeat radiation. Will give solumedrol and benadryl prior to scan. Urine preg was negative yesterday. Hospital Course Subjective: CT w/ contrast showed bilateral pyelo, worse on the right. Otherwise no worrisome findings. Pt tolerated contrast well. Patient was treated with rocephin, fluids, and pain control. Blood cultures negative. She had significant pain initially but this improved during stay. Urine culture resulted on morning on 06/14 showing ESBL + e coli resistant to rocephin. Changed to Invanz. Today patient is requesting discharge, states she needs to be home taking care of her kids. Vitals and labs stable. Her pain is tolerable. She is able to tolerate PO diet. Discussed her urine culture results, they are not typical. It shows sensitivity to fluoroquinolones. However typical treatment recommendations for ESBL + e coli is IM Invanz. After shared decision making, we will continue with Invanz IM outpatient for 7 more days starting tomorrow 06/16, last dose on 06/22. She will come here in the evenings after work for her inj. She is agreeable to this plan. F/u with pcp as well. Patient agrees to plan of care. Appearance: Pleasant, No Apparent Distress and Alert HEENT: MMM and Supple CVS: Other (RRR) Abdomen: Soft, No Distention and Other (right side tenderness but much improved ) Respiratory: No Accessory Muscle Use Extremities: No Edema Vital Signs: Most Recent Vital Signs Temperature 97.5 F L 06/15/25 05:08 Temperature Source Temporal Artery Scan 06/15/25 05:08 Temperature Source Oral 06/12/25 14:58 Pulse Rate 66 06/15/25 05:08 Respiratory Rate 18 06/15/25 05:08 Blood Pressure 122/72 06/15/25 05:08 Blood Pressure Mean 88 06/15/25 05:08 Blood Pressure Right Arm 121/89 06/12/25 20:14 Blood Pressure Location Left Arm 06/15/25 05:08 Blood Pressure Position Supine 06/14/25 21:26 O2 Sat by Pulse Oximetry 97 06/15/25 05:08 Oxygen Delivery Method Room Air 06/15/25 05:08 Height 5 ft 7 in 06/12/25 20:14 Weight 72.3 kg 06/12/25 20:14 Telemetry Type Remote Telemetry 06/15/25 07:00 Telemetry Monitoring Continues 06/15/25 07:00 Irregular Telemetry Rate (Approximate) 70-80 BPM 06/14/25 13:00 Telemetry Heart Rate 62 06/15/25 07:00 Telemetry SPO2 99 06/13/25 19:00 EKG GA Interval 0.13 06/15/25 07:00 EKG QRS Interval 0.07 06/15/25 07:00 Telemetry Strip Reading Sinus Arrhythmia 06/15/25 07:00 Imaging: EXAM: CT ABDOMEN AND PELVIS HISTORY: Right lower quadrant pain TECHNIQUE: CT abdomen and pelvis without intravenous contrast. Images were reconstructed using 3 mm section thickness. Reformations were prepared. COMPARISON: None FINDINGS: Diagnostic limitations exist without including intravenous contrast enhanced images. Elongated right hepatic lobe. Gallbladder is normal. No biliary dilatation or pancreatic pathology. Spleen and adrenal glands are normal. Left kidney and ureter are normal. There is mild right perinephric fat stranding and minimal hydronephrosis. The right ureter is mildly dilated and there is subtle right periureteral inflammatory stranding and urothelial thickening. No renal or ureteral calculus is identified. Urinary bladder is normal with no luminal calculus or wall thickening. Normal abdominal aorta. Normal stomach and appendix. General bowel gas pattern and appearance are within normal limits. No uterus is seen. There is no ascites or free air. No abdominal wall hernia. The bones are unremarkable. Lung bases are clear. - - - - - IMPRESSION: 1. There is mild right perinephric fat stranding and minimal hydronephrosis. The right ureter is mildly dilated and there is subtle right periureteral inflammatory stranding and urothelial thickening. No renal or ureteral calculus is identified. Urinary bladder is normal with no luminal calculus or wall thickening. Differential considerations include recent passage of a calculus and right renal collecting system infection/pyelonephritis. Correlate c linically. Left kidney is normal. 2. Normal appendix. Normal bowel gas pattern. No ascites or free air. - - - - - EXAM: CT ABDOMEN AND PELVIS WITH CONTRAST HISTORY: Severe right-sided pain out of proportion to exam. Hospital right-sided pyelonephritis. TECHNIQUE: CT acquisition of the abdomen and pelvis from the lower thorax through the pelvis following IV contrast administration. 2-D coronal and sagittal reformatted images were obtained from the axial source images. IV Contrast: 98 cc omnipaque 350 administered. Oral Contrast: None. CT Dose Reduction Techniques Performed: Yes. COMPARISON: None. FINDINGS: Lower Thorax: Within normal limits. Liver: There is mild periportal edema which is nonspecific though can be seen in setting of systemic stress or viral process. No focal hepatic abnormality. Biliary: Gallbladder and common bile duct are normal. Pancreas: No mass or evidence of pancreatitis. No duct dilation. Spleen: No mass. No splenomegaly. Adrenals: No mass. Kidneys/Ureters: Several hypodensities are seen throughout the kidney on the left the largest measures 1.4 x 1.1 cm. These are above simple fluid in nature. Fingers are seen within the bilateral kidneys. The largest area on vein right measures 2.2 x 1.3 cm. This is in the upper kidney with more striated appearance of the right kidney. Findings bilaterally could represent pyelonephritis. There is mild perinephric edema greater on the right. A well-defined fluid collection or abscess at this time is not definitively seen. There is mild wall thickening to the renal pelvis and ureters. This is greater on the right than the left. No obstructive uropathy. Findings are on the basis likely of pyelonephritis bilaterally and ureteritis bilaterally but greater on the right. GI Tract: Colon throughout does not demonstrate significant acute process. Diverticulosis without diverticulitis. Terminal ileum is normal. Appendix is normal. Small bowel is normal. Stomach is contracted but appears normal. Duodenum is normal. Peritoneal Cavity: No other fluid collection or mass. Retroperitoneum: No fluid collection. Lymph Nodes: No lymphadenopathy. Vasculature: No aortic atherosclerotic calcifications. No aortic or iliac aneurysm. Celiac, superior mesenteric, and inferior mesenteric arteries are grossly patent. Limited assessment of the portal and hepatic veins and IVC is unremarkable within limitations of the phase of IV contrast. Pelvis: There is a cyst within being adnexa on the left 2 cm. No other adnexal abnormality. Hysterectomy. Circumferential prominence of the bladder wall likely under distention without focal abnormal findings. Bones/Soft Tissues: Soft tissues do not demonstrate significant abnormal finding. Bony structures do not demonstrate significant acute abnormal finding. IMPRESSION: 1. There are multiple areas of abnormal hypodensity within the bilateral kidneys. Some of these are somewhat rounded while others are bandlike. Findings are consistent with bilateral pyelonephritis but worse on the left than the right. Hyperdense cysts are felt less likely. No internal air or wall to suggest definite abscess at this time. There is thickening of the bilateral ureters greater on the right likely on the basis of ureteritis and perinephric edema. No suspicious lesion or obstructive uropathy is definitively seen. We would recommend short-term follow up after appropriate clinical therapy and monitoring urinalysis to ensure that these resolve. Closer follow up may be obtained depending on patient's clinical presentation.. Circumferential prominence of the bladder wall may be due to underdistention or mild cystitis is not excluded. 2. There is mild periportal edema which may be due to the findings above. Liver is otherwise normal. 3. Upper abdominal organs otherwise are normal. 4. Bowel throughout does not demonstrate significant acute finding. 5. Hysterectomy. There is a benign-appearing cyst left adnexa measuring 2 cm. No other pelvic abnormality. Details and other findings, as above. Lab Results Last 24 Hours: 06/15/25 05:23 WBC 12.00 H RBC 3.71 L Hgb 10.8 L Hct 33.9 L MCV 91.4 MCH 29.1 MCHC 31.9 RDW Coeff of Danny 14.1 Plt Count 374 Immature Gran % (Auto) 1.1 Neut % (Auto) 69.6 Lymph % (Auto) 19.8 [place] % (Auto) 7.8 Eos % (Auto) 1.3 Baso % (Auto) 0.4 Neut # (Auto) 8.4 H Lymph # (Auto) 2.4 [place] # (Auto) 0.9 Eos # (Auto) 0.2 Baso # (Auto) 0.1 Immature Gran # (Auto) 0.1 Sodium 137.1 Potassium 3.33 L Chloride 107.5 H Carbon Dioxide 29.1 Anion Gap 3.83 BUN 8.0 Creatinine 0.64 Estimated GFR (MDRD) 103.00 BUN/Creatinine Ratio 12.50 Glucose 95.4 Calcium 7.55 L Total Bilirubin 0.12 L AST 22.0 ALT 22.7 Alkaline Phosphatase 117.8 Total Protein 5.22 L Albumin 2.60 L Globulin 2.62 Albumin/Globulin Ratio 0.99 Discharge Instructions Discharge Planning: Discharge Planning > [address] Pedrito Bedolla. Discharge Medications: Medications at Discharge (Home Meds & RX) ertapenem 1 gram solution for injection 1 g IM DAILY #7 ea 06/15/25 Discharge Plan Discharge Discharge Orders: Discharge Patient (ONCE); Ordered 06/15/25 Ordered By: PANFILO ABDUL Activity Restrictions/Additional Instructions: DISCHARGE TO HOME DX: UTI - ESBL + E COLI INVANZ 1 GM IM X7 DAYS STARTING TOMORROW RETURN TO OUTPATIENT/ER REGISTRATION DAILY FOR INJECTION FOLLOW UP WITH PCP RETURN WITH WORSENING SYMPTOMS IBUPROFEN OR TYLENOL PRN FOR PAIN DRINK PLENTY OF WATER/FLUIDS Instructions: Ertapenem (By injection), Kidney Infection (DC), Extended Spectrum Beta-Lactamase (GEN) Patient Disposition: HOME SELF-CARE Prescriptions: New ertapenem 1 gram recon soln 1 g IM DAILY Qty: 7 0RF Did you review [place] UTILITY HELICOPTER REPAIRER for ALL controlled substances?: Not Applicable Discussed opioids are addictive and Narcan is available by prescription or from pharmacy.: No Referrals: Mary Boucher MD [Other] - 06/27/25 11:15 am
[2025-06-15] MEDS: K-DUR PO ONE (09:31)
== END 2025-06-15 11:45 | disposition home or self-care (01) | DRG 690 ==
LOC: MEDSURG B 14:55 → ED 14:55 → OBSVTOIN 18:23 → INTOOBSV 18:27 → MEDSURG B 20:10
PROVIDERS: ADMIT Hospitalist; ATTEND Physician Assistant
DX: N10 Acute pyelonephritis; B96.20 Unspecified Escherichia coli [E. coli] as the cause of diseases classified elsewhere